=== PATIENT | female | born 1950 | race Caucasian/White ===

== ENCOUNTER 2016-12-07 12:45 | Outpatient (CLI) | payer SELFPAY | END 2016-12-07 18:04 | disposition home or self-care (01) | LOC: SMA 12:45 | DX: Z12.31 Encounter for screening mammogram for malignant neoplasm of breast (principal) | CPT/HCPCS: G0202 ==

== ENCOUNTER 2016-12-07 15:27 | Outpatient (CLI) | payer BC, SELFPAY | END 2016-12-07 18:04 | disposition home or self-care (01) | LOC: SRD 15:27 | DX: R92.8 Other abnormal and inconclusive findings on diagnostic imaging of breast (principal) | CPT/HCPCS: 76642 ==

== ENCOUNTER 2017-12-21 13:13 | Outpatient (CLI) | payer OTHER | END 2017-12-21 20:27 | disposition home or self-care (01) | LOC: SMA 13:13 | DX: Z12.31 Encounter for screening mammogram for malignant neoplasm of breast (principal); N63.20 Unspecified lump in the left breast, unspecified quadrant | CPT/HCPCS: 76641; 77067 ==